=== PATIENT | male | born 1980 | race Asian ===

== ENCOUNTER → 2021-09-29 | Outpatient (CLI) | payer OTHER | LOC: COL.RAD 12:20 → EDBD 13:15 | DX: M50.322 Other cervical disc degeneration at C5-C6 level (principal); M48.02 Spinal stenosis, cervical region; M25.78 Osteophyte, vertebrae ==

== ENCOUNTER → 2022-01-27 | Outpatient (CLI) | payer OTHER | LOC: COL.CARD 10:00 | DX: R41.3 Other amnesia (principal); R41.0 Disorientation, unspecified ==

== ENCOUNTER → 2022-02-10 | Outpatient (CLI) | payer OTHER | LOC: MHCPAIN 12:27 | DX: M54.2 Cervicalgia (principal); R51.9 Headache, unspecified; M47.812 Spondylosis without myelopathy or radiculopathy, cervical region; M54.81 Occipital neuralgia | CPT/HCPCS: G0463 ==

== ENCOUNTER → 2022-03-22 | Outpatient (CLI) | payer OTHER | LOC: MHCPAIN 09:34 | DX: M47.812 Spondylosis without myelopathy or radiculopathy, cervical region (principal); M54.2 Cervicalgia; G44.86 Cervicogenic headache | CPT/HCPCS: G0463; J0461 ==

== ENCOUNTER → 2022-10-20 | Outpatient (CLI) | payer OTHER ==
[~2022-10-20] MED LIST: ASPIRIN E.C. 8181 MG PO; COZAAR 25MG25 MG/TAB PO; COZAAR 50MG50 MG/TAB PO; LIDODERM 5% PATC1 EA TP; LIPITOR20 MG PO; NAPROSYN500 MG PO; TYLENOL 500MG500 MG PO; VITAMIN D31000 IU PO
== END ==
LOC: MHCPAIN 12:48
DX: M54.2 Cervicalgia (principal); M54.81 Occipital neuralgia; R51.9 Headache, unspecified
CPT/HCPCS: G0463